=== PATIENT | female | born 1975 | race Caucasian/White ===

== ENCOUNTER 2016-06-13 18:57 | Emergency (ER) | payer OTHER ==
[~2016-06-13] VITALS: Ht 175.3 cm; Wt 122.7 kg
[2016-06-13 19:15] VITALS: BP 148/75; PULSE 90; RESP 19; O2SAT 100
--- NOTE | 2016-06-13 19:59 | ED.REPORT ---
HPI-Psychiatric Illness Date of Service Jun 13, 2016 ED Provider: Phani Kauffman MD Patient is a 41 year old female with a history of mental illness and substance abuse who presents to the ED complaining of a L ear implant that she would like removed. She is convinced that when she was in the ED one year ago, an implant was put in her L ear and ever since an ear infection a month or 2 ago, she can feel the implant trying to "pop" out. She denies drug use at this time. She has not been taking her [place] for the past month because of issues with her insurance (now reinstated). She was seen 08/03/15 when she was brought in by police for methamphetamine abuse. She is not homicidal or suicidal at this time. Direct quotes from the patient include: "There is a speaker system with a hot spot at [facility] and I had an ear infection and now there is an implant in my ear trying to pop out", "I'm not able to calm down and relax" , "this is putting my life on hold", "is this some program the government is doing that I don't know about?", "this was put in here ! You guys put it in here. Whatever this program is, it is a behavioral modification and I just can't stand it anymore", "I still have a tooth implant from the [facility] when I got a tooth pulled", "[facility] I had [facility]. Why wont anyone tell me what's going on", and "something popped out in my eye and my tooth". Nursing Notes Stated Complaint: COHOCULAR EAR IMPLANT - WANTS IT REMOVED Chief Complaint: Psychiatric Complaint Nursing Notes Reviewed: Yes Allergies: Coded Allergies: hydrocodone (Verified Adverse Reaction, Intermediate, RED CHEEKS, 06/13/16) DOES NOT HELP THE PAIN General Time Seen by MD: 19:58 Chief Complaint Manic Hx Obtained From: Patient Arrived By: Walk-in Risk-Psychiatric Illness Suicide Risk Stratification Suicide Risk Factors - Adult: : Substance abuseNo: Previous attempt RF Statements: Risk factors reviewed Past Medical History Past Medical History Bipolar/PTSD h/o Abuse TMJ Reports: Mental illness Past Surgical History Reports: Family History Mental illness Smoking History Current Every Day Smoker Social History Alcohol Use: Denies alcohol use Drug Use: Meth, THC Occupation single, has a place to stay Ambulatory Status Independent Review of Systems Unable to Obtain ROS Mental status Physical Exam Initial Vital Signs Vital Signs (First) Date Time Temp Pulse Resp B/P Pulse Ox O2 Delivery O2 Flow Rate FiO2 06/13/16 19:15 36.9 90 19 148/75 100 Room Air Initial VS: Reviewed Head / Eyes: Atraumatic, Normocephalic Neck: Full range of motion Respiratory: Breath sounds normal, Clear to auscultation, No respiratory distress Skin: Warm, Dry General/Constitutional: Awake, Alert, Well developed Neurologic: Oriented X3, Gait NL Psychiatric: Not suicidal, Not homicidal Abnormal Thinking / Perception: Positive: Delusions - paranoid, Insight abnormal, Judgment abnormal, Tangential thinking Flight of speech ENT: Mastoid area NL No mastoid tenderness No palpable mass Re-Eval/Medical Decision Med Decision/Clinical Course 41-year-old female appears to be in a manic state and with delusions of having an implant in her skull or ear for government monitoring. She is not suicidal or homicidal and does not appear to be gravely disabled. The patient herself states that she is "fine". He had been off her medications for approximately one month but states that her insurance had been reinstated and she can now restart her medications and restart services at [facility]. I advised her to do so. Do not believe she needs a psychiatric admission tonight nor does she need involuntary care. Re-Evaluation/Progress : Time of Eval: 20:18 )( Re-Eval Psychiatric: No danger to self, No homicidal ideation Re-Evaluation/Progress Note: Patient left without discharge instructions after discussing plan for follow up. Counseled Regarding: Diagnosis, Need for follow-up, When/why to return to ED Discharge & Departure Departure Notes Patient left without discharge instructions. She was advised I felt that she was at this point delusional I advised her to restart her previous medication and follow-up with [facility] as soon as possible. She refused to wait for written discharge instructions. Impression: Primary Impression: Delusions Additional Impression: Manic state Disposition: Home Discharge Condition All VS Reviewed: Yes Condition: No Change Referrals: Cristela Hernandez MD (PCP) Scribe Attestation Portions of this note were transcribed by Kait Marquez. IDr. Kauffman personally performed the history, physical exam and medical decision-making; I reviewed and confirmed the accuracy of the information in the transcribed note. Signed by: Kait Marquez 06/13/162037 copies to: Cristela Hernandez MD, Donald L MD Jun 13, 2016 19:59 KAIT MARQUEZ Jun 13, 2016 20:08
== END 2016-06-13 20:18 | disposition left against medical advice (07) ==
LOC: SED 18:57
DX: F22 Delusional disorders (principal); F30.9 Manic episode, unspecified; F17.200 Nicotine dependence, unspecified, uncomplicated; Z96.21 Cochlear implant status; Z88.5 Allergy status to narcotic agent